=== PATIENT | female | born 1965 | race Caucasian/White ===

== ENCOUNTER 2017-05-31 21:43 | Emergency (ER) | payer BC ==
[2017-05-31] MEDS ORDERED: Albuterol/Ipratropium 3.0-0.5 MG/3 ML Neb Soln INH ONE (21:44)
[2017-05-31] MEDS ORDERED: Albuterol/Ipratropium 3.0-0.5 MG/3 ML Neb Soln NEB ONE (21:52)
[2017-05-31] MEDS ORDERED: methylPREDNISolone Acetate 80 MG/ML SDV IM ONE (21:52)
[2017-05-31] MEDS ORDERED: cefTRIAXone 1 GM Vial IM ONE (21:52)
[2017-05-31] MEDS ORDERED: Lidocaine 1% 20 ML MDV INJECT ONE (21:53)
--- NOTE | 2017-05-31 21:54 | EDM.PDOC ---
ED HPI GENERAL MEDICAL PROBLEM - General Chief Complaint: Respiratory Problem Stated Complaint: SOB Time Seen by Provider: 05/31/17 21:45 Source of Information: Reports: Patient History Limitations: Reports: No Limitations - History of Present Illness INITIAL COMMENTS - FREE TEXT/NARRATIVE: Patient presents today with shortness of breath and chest tightness. States has been ill for since Thanksgiving with sinus congestion, ear pain, cough. Today the chest became more tight and she noted increased wheezing. Does have a history of reactive airway disease and relates that when she gets ill, she has trouble with her breathing. Has used her inhaler several times today without feeling much relief. Does admit that the cold air did help some as she noted the wheezing has improved. No fevers. Cough has been productive of thick yellow phlegm. Onset: Gradual Duration: Day(s): Location: Reports: Chest Severity: Moderate Associated Symptoms: Reports: Cough, cough w sputum, Fever/Chills, Shortness of Breath, Weakness. Denies: Diaphoresis, Loss of Appetite, Nausea/Vomiting Treatments HOUSE ADMIN: Reports: Other Medication(s) Other Treatments HOUSE ADMIN: albuterol Chest Pain Score (Numeric/FACES): 6 - Related Data Allergies Allergy/AdvReac Type Severity Reaction Status Date / Time No Known Allergies Allergy Verified 05/31/17 21:54 Home Meds: Home Meds Albuterol [Ventolin HFA] 1 each INH Q6HR PRN 04/23/17 [History] Social & Family History - Tobacco Use Smoking Status *Q: Never Smoker ED ROS GENERAL - Review of Systems Review Of Systems: See Below Constitutional: Reports: Chills, Malaise, Fatigue. Denies: Fever, Decreased Appetite HEENT: Reports: Ear Pain, Rhinitis, Sinus Problem, Throat Pain Respiratory: Reports: Shortness of Breath, Cough, Sputum Cardiovascular: Denies: Chest Pain, Edema, Lightheadedness Endocrine: Reports: Fatigue GI/Abdominal: Denies: Abdominal Pain, Constipation, Diarrhea, Nausea, Vomiting Musculoskeletal: Reports: No Symptoms Skin: Reports: No Symptoms Neurological: Reports: No Symptoms Psychiatric: Reports: No Symptoms ED EXAM, GENERAL - Physical Exam Exam: See Below Exam Limited By: No Limitations General Appearance: Alert, WD/WN, No Apparent Distress Ears: Normal External Exam, Normal TMs Nose: Normal Inspection, Nasal Drainage (mucopurulent rhinorrhea noted.) Throat/Mouth: Normal Inspection, Other (posterior pharynx is red) Head: Normocephalic Neck: Normal Inspection, Supple, Non-Tender Respiratory/Chest: No Respiratory Distress, Decreased Breath Sounds Cardiovascular: Regular Rate, Rhythm, No Edema GI/Abdominal: Normal Bowel Sounds, Soft, Non-Tender Course - Vital Signs Last Recorded V/S: Last Vital Signs Temp 98.8 F 05/31/17 21:51 Pulse 108 H 05/31/17 21:51 Resp 20 05/31/17 21:51 BP 143/80 H 05/31/17 21:51 Pulse Ox 97 05/31/17 21:51 - Orders/Labs/Meds Orders: Active Orders 24 hr Category Date Time Status RT Aerosol Therapy [RC] ASDIRECTED Care 05/31/17 21:53 Active Meds: Medications Discontinued Medications Generic Name Dose Route Start Last Admin Trade Name Freq PRN Reason Stop Dose Admin Albuterol/Ipratropium 3 ml 05/31/17 21:52 05/31/17 22:05 Duoneb 3.0-0.5 Mg/3 Ml NEB 05/31/17 21:53 3 ml ONETIME ONE Administration Ceftriaxone Sodium 1 gm 05/31/17 21:52 05/31/17 22:06 Rocephin IM 05/31/17 21:53 1 gm ONETIME ONE Administration Lidocaine HCl 20 ml 05/31/17 21:53 05/31/17 22:06 Xylocaine 1% INJECT 05/31/17 21:54 20 ml ONETIME ONE Administration Methylprednisolone Acetate 80 mg 05/31/17 21:52 05/31/17 22:05 Depo-Medrol IM 05/31/17 21:53 80 mg ONETIME ONE Administration - Re-Assessments/Exams Free Text/Narrative Re-Assessment/Exam: 05/31/17 22:31 Given nebulizer treatment. Does feel less tightness in her chest, has better air exchange. Departure - Departure Time of Disposition: 22:32 Disposition: Home, Self-Care 01 Condition: Fair Clinical Impression: Sinusitis, Acute bronchitis - Discharge Information Instructions: Upper Respiratory Infection, Adult, [id number] Forms: ED Department Discharge Additional Instructions: 1. Rest 2. Push fluids 3. DuoNebs four times per day and every 4 hours as needed through the night for the next 3 days and then as needed 4. Levaquin 500 mg every day for 10 days 5. Follow up with primary care provider as needed. - My Orders Last 24 Hours: My Active Orders 05/31/17 21:53 RT Aerosol Therapy [RC] ASDIRECTED - Assessment/Plan Last 24 Hours: My Active Orders 05/31/17 21:53 RT Aerosol Therapy [RC] ASDIRECTED
[2017-05-31] MEDS ORDERED: Take Home: Albuterol/Ipratropium 3.0-0.5 MG/3 ML Neb Soln, 4 Neb Pack NEB ONE (22:33)
== END 2017-05-31 23:05 | disposition home or self-care (01) ==
LOC: CC.ED 21:43
DX: J20.9 Acute bronchitis, unspecified (principal); J32.9 Chronic sinusitis, unspecified
CPT/HCPCS: 96372; 99284; A9270; J0696; J1040